=== PATIENT | female | born 1985 | race Hispanic/Latino ===

== ENCOUNTER 2016-10-25 19:43 | Emergency (ER) | payer OTHER ==
[~2016-10-25] VITALS: Ht 157.5 cm; Wt 77.3 kg
[2016-10-25 19:49] VITALS: BP 124/79; PULSE 108; RESP 16; O2SAT 99
--- NOTE | 2016-10-25 20:16 | ED.REPORT ---
HPI-General Illness Date of Service Oct 25, 2016 ED Provider: Lamont Coffey PA-C Alejandra is an otherwise healthy 31-year-old female who presents seeking a chlamydia test. Patients significant other recently tested positive for chlamydia and negative for gonorrhea. He is being treated with doxycycline. She had a positive test 2 days ago. She states her last menstrual period was September 21. She admits to chills, sore throat, fatigue, increased yellow vaginal discharge. Denies dysuria, dysuria, frequency, urgency, fever, malaise, abdominal pain, vomiting, diarrhea. Nursing Notes Stated Complaint: CHLAMYDIA TEST Chief Complaint: General Complaint Nursing Notes Reviewed: Yes Allergies: Coded Allergies: No Known Allergies (Unverified , 10/25/16) General Time Seen by MD: 20:00 Chief Complaint Other (seeking chlamydia test) Past Medical History Past Medical History Notes: Denies Review of Systems Negative unless stated otherwise in history of present illness Physical Exam General: Well appearing, well developed, well nourished, no acute distress. Appears anxious. Head: Atraumatic, normocephalic. Eyes: No scleral icterus or injection. No discharge. Vision grossly intact. ENT: Voice clear, hearing grossly intact. Throat: No discharge or injection. Tonsils 2+ and symmetrical. Cardiovascular: Regular rate at 96 bpm and rhythm. No murmur noted. Respiratory: No respiratory distress, no increased work of breathing. Speaks in complete sentences. Skin: Warm and dry. Neurological: Grossly nonfocal. Psychological: alert and oriented. Speech appropriate, linear and logical. Behavior appropriate. Vital Signs Vital Signs Date Time Temp Pulse Resp B/P Pulse Ox O2 Delivery O2 Flow Rate FiO2 10/25/16 19:49 36.6 108 16 124/79 99 Initial VS: Reviewed, Vital signs abnormal (tachycardia) Interpretation & Diagnostics Lab Results Interpretation Test 10/25/16 20:00 Hold Urine Received (Received) Re-Eval/Medical Decision Med Decision/Clinical Course Otherwise healthy 31-year-old female with a recent positive test presents with concern for chlamydia. Her partner recently tested positive for Chlamydia and negative for gonorrhea. She admits chills, fatigue, sore throat, increased yellow vaginal discharge. Denies burning, itching, dysuria, hematuria , frequency, urgency. Tested for GC/chlamydia and treated for same with azithromycin and ceftriaxone. Advise primary care follow-up, answered all questions to the best of my ability and gave return precautions Discharge & Departure Primary Impression: Chlamydia contact Disposition: Home Discharge Condition All VS Reviewed: Yes Condition: Stable Patient Instructions: Chlamydia Infection (ED) Additional Instructions: We have taken a urine sample to perform a Chlamydia test. We should have results on this within a week or so. We have also gone ahead and treated for both gonorrhea and chlamydia because the 2 infections are often related. You received treatment in the emergency department and this should be sufficient to eliminate both diseases. Follow-up with your primary care provider if any further concerns or to initiate care. Return to emergency department for any new or worsening symptoms including abdominal pain, vaginal bleeding or discharge. Referrals: OTHER,PHYSICIAN Patient is seen at [facility] in [place]. She cannot recall her physician' s name. EDSupervising Provider for APC: Ga Lam Seth PA-C Oct 25, 2016 20:16
[2016-10-25] MEDS ORDERED: cefTRIAXone Inj 250 MG, Lidocaine PF 1% Inj 0.9 ML in Syringe 1 EACH IM ONE (20:20)
[2016-10-25 21:15] VITALS: PULSE 88; RESP 16; O2SAT 100
== END 2016-10-25 21:10 | disposition home or self-care (01) ==
LOC: SED 19:43
DX: N89.8 Other specified noninflammatory disorders of vagina (principal); Z20.2 Contact with and (suspected) exposure to infections with a predominantly sexual mode of transmission
CPT/HCPCS: 87491; 87591; 96372; 99284; J0696